=== PATIENT | male | born 1975 | race Caucasian/White ===

== ENCOUNTER → 2018-06-20 | Outpatient (CLI) | payer OTHER | LOC: CAT 07:47 | DX: Z13.6 Encounter for screening for cardiovascular disorders (principal); E78.00 Pure hypercholesterolemia, unspecified; I25.10 Atherosclerotic heart disease of native coronary artery without angina pectoris ==

== ENCOUNTER → 2018-09-13 | Outpatient (CLI) | payer OTHER | LOC: CAT 14:52 | DX: R91.1 Solitary pulmonary nodule (principal); R91.8 Other nonspecific abnormal finding of lung field ==

== ENCOUNTER → 2019-05-09 | Outpatient (CLI) | payer BC, OTHER | LOC: CAT 10:11 | DX: R91.1 Solitary pulmonary nodule (principal) ==